=== PATIENT | male | born 1980 | race Caucasian/White ===

== ENCOUNTER 2020-09-10 15:01 | Outpatient (REF) | payer BC, SELFPAY ==
--- NOTE | 2020-09-10 15:06 | XR_ITS ---
EXAMINATION: XR LUMBOSACRAL SPINE WITH OBLIQUES CLINICAL INFORMATION: Pain COMPARISON: None TECHNIQUE: AP, both oblique, and lateral views of the lumbar spine. Lateral view of the lumbosacral junction. FINDINGS: The vertebral bodies and posterior elements are normal. The disc spaces are preserved and the vertebral alignment is normal. The paraspinal soft tissues are normal. XR/XR lumbar spine 4V min IMPRESSION: Unremarkable examination.
== END 2020-09-10 15:02 | disposition home or self-care (01) ==
LOC: HO.HMGCX 15:01
PROVIDERS: PCP Internal Medicine; Visit Provider Internal Medicine
DX: M54.5 Low back pain (principal)
CPT/HCPCS: 72110

== ENCOUNTER 2020-09-12 07:05 | Outpatient (REF) | payer BC, SELFPAY ==
[2020-09-12 11:53] LABS: Alanine Aminotransferase 52 U/L (0-40); Aspartate Amino Transferase 30 U/L (5-37); Cholesterol 191 mg/dL; HDL Cholesterol 50 mg/dL; LDL Cholesterol Calculated 126 mg/dl; Triglycerides 78 mg/dL
== END 2020-09-12 07:06 | disposition home or self-care (01) ==
LOC: HO.HMGCLDS 07:05
PROVIDERS: PCP Internal Medicine; Visit Provider Internal Medicine
DX: Z00.01 Encounter for general adult medical examination with abnormal findings (principal); E78.5 Hyperlipidemia, unspecified; I10 Essential (primary) hypertension
CPT/HCPCS: 80061; 84450; 84460

== ENCOUNTER 2021-08-06 06:36 | Outpatient (REF) | payer BC, SELFPAY ==
[2021-08-06 11:15] LABS: Appearance Urine CLEAR; Color Urine YELLOW; Glucose Urine UA NEG (NEG); Leukocyte Esterase Urine NEG (NEG); Nitrite Urine NEG (NEG); Urine Blood NEG (NEG); Urine Ketones NEG (NEG); Urine Protein NEG (NEG-TRACE)
[2021-08-06 11:24] LABS: Hematocrit 40.7 % (42.0-52.0); Hemoglobin 14.1 g/dl (14.0-18.0); Mean Corpuscular HGB Conc 34.6 g/dl (31.0-36.0); Mean Corpuscular Hemoglobin 31.1 pg (27.0-33.0); Mean Corpuscular Volume 89.8 fL (80.0-98.0); Mean Platelet Volume 11.2 fL (9.4-12.4); Platelet Count 183 X10*3/uL (160-400); Red Blood Count 4.53 X10*6/uL (4.60-5.80); Red Cell Distribution Width 10.9 % (11.0-16.0); White Blood Count 3.5 X10*3/uL (4.8-10.8)
[2021-08-06 11:44] LABS: Alanine Aminotransferase 37 U/L (0-40); Albumin Level 4.6 g/dL (3.5-5.0); Alkaline Phosphatase 66 U/L (39-117); Anion Gap 10 (12-20); Aspartate Amino Transferase 26 U/L (5-37); Bilirubin Direct 0.3 mg/dL (0.0-0.5); Blood Urea Nitrogen 17 mg/dL (9-16); Calcium 9.2 mg/dL (8.4-10.2); Carbon Dioxide 25 mmol/L (22-29); Chloride 108 mmol/L (96-108); Cholesterol 197 mg/dL; Estimated Glomerular Filt Rate > 60; Glucose Random 95 mg/dL (60-115); HDL Cholesterol 43 mg/dL; LDL Cholesterol Calculated 140 mg/dl; Potassium 4.3 mmol/L (3.3-5.1); Sodium 139 mmol/L (135-145); Total Protein 7.1 g/dL (6.5-8.0); Triglycerides 70 mg/dL
[2021-08-06 11:52] LABS: Thyroid Stimulating Hormone 1.26 uIU/mL (0.32-4.0)
[2021-08-07 07:47] LABS: SARS COV2 IgG Negative (Negative)
== END 2021-08-06 06:37 | disposition home or self-care (01) ==
LOC: HO.HMGCLDS 06:36
PROVIDERS: PCP Internal Medicine; Visit Provider Internal Medicine
DX: Z20.822 Contact with and (suspected) exposure to COVID-19 (principal); I10 Essential (primary) hypertension
CPT/HCPCS: 36415; 80048; 80061; 80076; 81003; 84443; 85027; 86769

== ENCOUNTER 2021-12-30 08:06 | Outpatient (REF) | payer BC, SELFPAY ==
[2021-12-30 11:23] LABS: MANUAL DIFF FLAG NO
[2021-12-30 11:46] LABS: Basophils Percent Auto 0.5 % (0-2); Eosinophils Absolute Auto 0.1 X10*3/uL (0.0-0.4); Eosinophils Percent Auto 3.4 % (0-4); Hematocrit 42.2 % (42.0-52.0); Hemoglobin 14.6 g/dl (14.0-18.0); Imm Gran Abs Auto 0.01 X10*3/uL (0.00-0.03); Imm Gran Pct Auto 0.3 % (0.0-0.4); Lymphocytes Absolute Auto 1.5 X10*3/uL (1.2-4.9); Lymphocytes Percent Auto 38.3 % (20-40); Mean Corpuscular HGB Conc 34.6 g/dl (31.0-36.0); Mean Corpuscular Hemoglobin 31.7 pg (27.0-33.0); Mean Corpuscular Volume 91.7 fL (80.0-98.0); Monocytes Absolute Auto 0.3 X10*3/uL (0.1-1.2); Monocytes Percent Auto 8.1 % (2-11); Neutrophils Absolute Auto 1.9 x10*3/uL (2.0-8.3); Neutrophils Percent Auto 49.4 % (45-73); Platelet Count 189 X10*3/uL (160-400); Red Cell Distribution Width 11.6 % (11.0-16.0); White Blood Count 3.8 X10*3/uL (4.8-10.8)
[2021-12-30 11:57] LABS: Alanine Aminotransferase 35 U/L (0-40); Aspartate Amino Transferase 23 U/L (5-37); Cholesterol 208 mg/dL; HDL Cholesterol 44 mg/dL; LDL Cholesterol Calculated 144 mg/dl; Triglycerides 104 mg/dL
== END 2021-12-30 08:07 | disposition home or self-care (01) ==
LOC: HO.HMGCLDS 08:06
PROVIDERS: Visit Provider Internal Medicine
DX: E78.5 Hyperlipidemia, unspecified (principal); R42 Dizziness and giddiness
CPT/HCPCS: 36415; 80061; 84450; 84460; 85025

== ENCOUNTER 2023-01-13 08:47 | Outpatient (REF) | payer BC, SELFPAY ==
[2023-01-13 11:53] LABS: Alanine Aminotransferase 61 U/L (0-40); Anion Gap 14 (12-20); Aspartate Amino Transferase 30 U/L (5-37); Blood Urea Nitrogen 13 mg/dL (9-16); Calcium 9.7 mg/dL (8.4-10.2); Carbon Dioxide 28 mmol/L (22-29); Chloride 104 mmol/L (96-108); Cholesterol 209 mg/dL; Estimated Glomerular Filt Rate > 60; Glucose Fasting 94 mg/dL (60-99); HDL Cholesterol 45 mg/dL; LDL Cholesterol Calculated 146 mg/dl; Potassium 4.3 mmol/L (3.3-5.1); Sodium 142 mmol/L (135-145); Triglycerides 93 mg/dL
== END 2023-01-13 08:48 | disposition home or self-care (01) ==
LOC: HO.HMGCLDS 08:47
PROVIDERS: PCP Internal Medicine; Visit Provider Internal Medicine
DX: Z00.01 Encounter for general adult medical examination with abnormal findings (principal); E78.5 Hyperlipidemia, unspecified; F41.9 Anxiety disorder, unspecified; I10 Essential (primary) hypertension
CPT/HCPCS: 36415; 80048; 80061; 84450; 84460

== ENCOUNTER 2023-04-25 12:50 | Outpatient (AMB) | payer BC, SELFPAY ==
--- NOTE | 2023-04-25 13:14 | A.OFFPC_ITS ---
Vital Signs 04/25/23 13:15 Height 5 ft 9 in Weight 212 lb BMI 31.3 BP 112/72 Blood Pressure Location Lt brachial Position Sitting Pulse 82 Pulse Source Pulse Oximeter Pulse Oximetry (%) 98 Oxygen Delivery Method Room Air Intake Visit Reasons: Cough follow-up Intake Note: Pt is here today to f/u on a lingering cough and wheezing Allergies lisinopril Adverse Reaction (Unknown, Verified 04/25/23 13:14) cough pollen/weather realated Allergy (Unknown, Uncoded 04/25/23 13:14) unknown Terbinafine Allergy (Unknown, Uncoded 04/25/23 13:14) rash Medication List - Last Reconciled 04/25/23 by Ghazala Florez MD albuterol sulfate 90 mcg/actuation (ProAir HFA) 1 inh inhalation Q4-6H PRN hydrochlorothiazide 12.5 mg PO QAM hydroxyzine HCl 25 mg PO BEDTIME PRN losartan 100 mg PO DAILY omeprazole 20 mg PO DAILY Tobacco use date assessed: 04/25/23 Dental Screening Dental Screen Date: 04/25/23 Did you have a dental visit in the last 12 months?: Yes Did you have a dental problem in the last 6 months where you did not have access to dental care?: No Was dental information given to patient?: Patient has dentist HPI Cough follow-up HPI Details 3-year-old male with mild intermittent asthma, here today complaining of recurrent nocturnal coughing accompanied by wheezing, present now for the last 5 days. Patient has been using his albuterol almost on a regular basis, which affords only temporary relief. He also has heartburn symptoms, takes omeprazole [id number], but takes it in the morning. \ he also has been complaining of intermittent episodes of pain at tips of both fingers, left more than the right, accompanied by wrist pain and knee pain, denies any accompanying joint swelling. States that he has positive family history of polyarteritis nodosa in his father and mother has both diagnosis of rheumatoid and osteoarthritis [facility] Medical History (Updated 04/25/23 @ 13:57 by Ghazala Florez MD) Anxiety Dyslipidemia Essential hypertension Family history of rheumatoid arthritis Heartburn symptom Low back pain radiating down leg Mild intermittent asthma Nocturnal cough with wheeze Polyarthralgia Surgical History Hx of tonsillectomy Family History Father High blood pressure High cholesterol Substance use disorder Mother High blood pressure High cholesterol Arthritis Sister High blood pressure High cholesterol Brother High blood pressure Social History Housing: House Alcohol intake: current Alcohol intake frequency: a few times a month Alcohol type: beer Patient Tobacco Use Status: Never used Tobacco e-Cigarette/Vaping Use: Never Used Current occupational status: employed Cognitive needs: No Hearing needs: No Vision needs: No Questionnaire PHQ-9 Over the last 2 weeks, how often have you been bothered by any of the following problems? Depression Screening Interpretation: Negative Source: Developed by Drs. Kg Greenwood, Anne Wolfe, Juan Latif and colleagues, with an educational irene from [employer]. Thrive Questionnaire Date Thrive assessed: 01/13/23 AUDIT C Alcohol Use Questionnaire (AUDIT-C) 1. How often do you have a drink containing alcohol?: Never Total Score: 0 KAREL-7 AMB Questionnaire KAREL-7 Date KAREL - 7 assessed: 01/13/23 Source: Developed by Drs. Kg Greenwood, Anne Wolfe, Juan Latif and colleagues, with an educational irene from [employer]. Review of Systems Const Denies headache(s) and Denies snoring ENT Denies halitosis, Denies change in voice, Denies dizziness, Denies ear discharge, Denies headache(s), Denies hoarseness, Denies nasal congestion, Denies nasal discharge, Denies post nasal drip, Denies sinus pain, Denies sinus pressure and Denies sore throat Card Denies chest pain, Denies rapid heart rate, Denies irregular heart rhythm, Denies lightheadedness and Denies dyspnea Resp Denies chest congestion, Denies dyspnea and Denies snoring GI Denies abdominal pain, Denies change in bowel habits, Denies nausea and Denies vomiting Musc Reports as per HPI Neuro Denies dizziness and Denies headache(s) Physical exam (Primary Care) Vital Signs: Last Vital Signs Pulse 82 04/25/23 13:15 BP 112/72 04/25/23 13:15 Pulse Ox 98 04/25/23 13:15 Oxygen Delivery Method Room Air 04/25/23 13:15 BMI result Body Mass Index 31.3 Tobacco/Smoking Status: Tobacco use Status Tobacco use date assessed 04/25/23 04/25/23 13:15 Patient Tobacco Use Status Never used Tobacco 04/25/23 13:15 e-Cigarette/Vaping Use Never Used 04/25/23 13:15 Depression Screening Interpretation: Negative Thrive Assessment: Date of Thrive Assessment Date Thrive assessed 01/13/23 04/25/23 13:15 Const Other: normocephalic ,. atraumatic, Nutritional Appearance: obese Limitations: no limitations HENMT Head: Yes atraumatic General nose exam: Normal external nose present and No nasal discharge present Face and sinus: Yes sinuses nontender and Yes face symmetric Mouth: Normal oral and palatal mucosa present and moist mucous membranes Neck Neck: Yes full ROM, Yes no lymphadenopathy and Yes supple Thyroid: Thyroid normal Resp Auscultation: clear to auscultation bilaterally Cardio Other: S1-S2 present regular rate and rhythm GI Palpation (GI): Soft to palpation, nontender, no guarding and no masses Auscultation: normal bowel sounds Male General Exam: Yes normal external exam Extrem General: Yes full ROM, Yes no joint enlargement, Yes no clubbing, cyanosis or edema, Yes no calf tenderness and Yes normal gait Assessment and Plan Assessment & Plan (1) Heartburn symptom: Code(s): R12 - Heartburn Plan: Currently taking [id number] omeprazole 20 mg daily advised to take it at night before bedtime, advised to avoid eating a full heavy meal at night (2) Polyarthralgia: Code(s): M25.50 - Pain in unspecified joint Plan: Additional labs ordered (3) Family history of rheumatoid arthritis: Code(s): Z82.61 - Family history of arthritis (4) Nocturnal cough with wheeze: Code(s): R05.8 - Other specified cough; R06.2 - Wheezing Plan: Continue with albuterol inhaler, will start Symbicort 160-4.5 mcg per inhalation, to initially start 1 inhalation at bedtime, may increase to 2 inhalations twice a day as needed for intermittent episodes of cough and wheezing. (5) Mild intermittent asthma: Code(s): J45.20 - Mild intermittent asthma, uncomplicated Orders: Orders CRP High Sensitivity 04/25/23 J45.20 - Mild intermittent asthma, uncomplicated, M25.50 - Pain in unspecified joint, R05.8 - Other specified cough, R06.2 - Wheezing, R12 - Heartburn, Z82.61 - Family history of arthritis Rheumatoid Factor 04/25/23 J45.20 - Mild intermittent asthma, uncomplicated, M25.50 - Pain in unspecified joint, R05.8 - Other specified cough, R06.2 - Wheezing, R12 - Heartburn, Z82.61 - Family history of arthritis Erythrocyte Sedimentation Rate 04/25/23 J45.20 - Mild intermittent asthma, uncomplicated, M25.50 - Pain in unspecified joint, R05.8 - Other specified co ugh, R06.2 - Wheezing, R12 - Heartburn, Z82.61 - Family history of arthritis ANCA Vasculitides 04/25/23 J45.20 - Mild intermittent asthma, uncomplicated, M25.50 - Pain in unspecified joint, R05.8 - Other specified cough, R06.2 - Wheezing, R12 - Heartburn, Z82.61 - Family history of arthritis Complement C3 04/25/23 J45.20 - Mild intermittent asthma, uncomplicated, M25.50 - Pain in unspecified joint, R05.8 - Other specified cough, R06.2 - Wheezing, R12 - Heartburn, Z82.61 - Family history of arthritis Complement C4 04/25/23 J45.20 - Mild intermittent asthma, uncomplicated, M25.50 - Pain in unspecified joint, R05.8 - Other specified cough, R06.2 - Wheezing, R12 - Heartburn, Z82.61 - Family history of arthritis Medications: New Symbicort 160-4.5 mcg/actuation (budesonide-formoterol) 2 puffs inhalation BID 10.2 grams 1RF NS Coding Level of Care Code Est Pt Level 4 (96439) Diagnoses Heartburn symptom R12 Polyarthralgia M25.50 Family history of rheumatoid arthritis Z82.61 Nocturnal cough with wheeze R05.8; R06.2 Mild intermittent asthma J45.20
[2023-04-25 13:15] VITALS: BP 112/72; PULSE 82; O2SAT 98; BMI 31.3
== END 2023-04-25 14:42 | disposition home or self-care (01) ==
PROVIDERS: PCP Internal Medicine; Visit Provider Internal Medicine
DX: R12 Heartburn (principal); M25.50 Pain in unspecified joint; Z82.61 Family history of arthritis; J45.20 Mild intermittent asthma, uncomplicated; R05.8 Other specified cough; R06.2 Wheezing
CPT/HCPCS: 99214

== ENCOUNTER 2023-04-27 15:43 | Outpatient (REF) | payer BC, SELFPAY ==
[2023-04-27 17:43] LABS: Erythrocyte Sedimentation Rate 2 MM/HR (0-15)
[2023-04-27 18:01] LABS: Rheumatoid Factor < 13.0 IU/mL (<15.0)
[2023-04-29 12:53] LABS: Complement C3 112 mg/dL (82-185)
[2023-04-29 19:18] LABS: Myeloperoxidase Antibody <1.0 AI; Proteinase 3 PR3 Antibodies <1.0 AI
[2023-04-29 19:58] LABS: CRP High Sensitivity 0.7 mg/L
== END 2023-04-27 15:44 | disposition home or self-care (01) ==
LOC: HO.LAB 15:43
PROVIDERS: PCP Internal Medicine; Visit Provider Internal Medicine
DX: M25.50 Pain in unspecified joint (principal); J45.20 Mild intermittent asthma, uncomplicated; R05.8 Other specified cough; R12 Heartburn; Z82.61 Family history of arthritis
CPT/HCPCS: 36415; 85652; 86021; 86141; 86160; 86431

== ENCOUNTER 2023-06-24 13:35 | Outpatient (AMB) | payer BC, SELFPAY ==
[2023-06-24 13:39] VITALS: BP 120/86; PULSE 77; O2SAT 99; BMI 31.2
--- NOTE | 2023-06-24 13:39 | A.OFFPC_ITS ---
Vital Signs 06/24/23 13:39 Height 5 ft 9 in Weight 211 lb BMI 31.2 BP 120/86 Blood Pressure Location Rt brachial Position Sitting Pulse 77 Pulse Source Pulse Oximeter Pulse Oximetry (%) 99 Oxygen Delivery Method Room Air Intake Visit Reasons: 2 month follow up Intake Note: patient is here today for his 2 month f/u Allergies lisinopril Adverse Reaction (Unknown, Verified 06/24/23 14:09) cough pollen/weather realated Allergy (Unknown, Uncoded 06/24/23 14:09) unknown Terbinafine Allergy (Unknown, Uncoded 06/24/23 14:09) rash Medication List - Last Reconciled 06/24/23 by Ghazala Florez MD albuterol sulfate 90 mcg/actuation (ProAir HFA) 1 inh inhalation Q4-6H PRN hydrochlorothiazide 12.5 mg PO QAM hydroxyzine HCl 25 mg PO BEDTIME PRN losartan 100 mg PO DAILY omeprazole 20 mg PO DAILY Symbicort 160-4.5 mcg/actuation (budesonide-formoterol) 2 puffs inhalation BID NS Tobacco use date assessed: 06/24/23 Dental Screening Dental Screen Date: 06/24/23 Did you have a dental visit in the last 12 months?: Yes Did you have a dental problem in the last 6 months where you did not have access to dental care?: No Was dental information given to patient?: Patient has dentist HPI 2 month follow up HPI Details 43-year-old male with mild intermittent asthma, here today for follow- up. He was started on Symbicort at last visit, but stopped taking the medication after riding of his prescription. Has not had any asthma attacks since last visit. Dated medication well. He is also here complaining of recurrence of toenail fungus on right big toenai; and 3rd and 4th toenail on the right foot [facility] Medical History (Updated 06/27/23 @ 01:08 by Ghazala Florez MD) Mild intermittent asthma Family history of rheumatoid arthritis Heartburn symptom Polyarthralgia Anxiety Low back pain radiating down leg Dyslipidemia Essential hypertension Surgical History Hx of tonsillectomy Family History Father High blood pressure High cholesterol Substance use disorder Mother High blood pressure High cholesterol Arthritis Sister High blood pressure High cholesterol Brother High blood pressure Social History Housing: House Alcohol intake: current Alcohol intake frequency: a few times a month Alcohol type: beer Patient Tobacco Use Status: Never used Tobacco e-Cigarette/Vaping Use: Never Used Current occupational status: employed Cognitive needs: No Hearing needs: No Vision needs: No Questionnaire PHQ-9 Over the last 2 weeks, how often have you been bothered by any of the following problems? Depression Screening Interpretation: Negative Source: Developed by Drs. Kg Greenwood, Anne Wolfe, Juan Latif and colleagues, with an educational irene from [employer]. Thrive Questionnaire Date Thrive assessed: 01/13/23 AUDIT C Alcohol Use Questionnaire (AUDIT-C) 1. How often do you have a drink containing alcohol?: Monthly or less 2. How many drinks containing alcohol do you have on a typical day when you are drinking?: 1 or 2 Total Score: 1 KAREL-7 AMB Questionnaire KAREL-7 Date KAREL - 7 assessed: 01/13/23 Source: Developed by Drs. Kg Greenwood, Anne Wolfe, Juan Latif and colleagues, with an educational irene from [employer]. Review of Systems Const Denies headache(s) ENT Denies dizziness, Denies ear discharge, Denies headache(s), Denies hoarseness, Denies nasal congestion and Denies post nasal drip Card Denies chest pain, Denies rapid heart rate, Denies irregular heart rhythm, Denies lightheadedness, Denies dyspnea and Denies dyspnea on exertion Resp Denies chest congestion, Denies dyspnea, Denies dyspnea on exertion and Denies wheezing GI Denies abdominal pain, Denies change in bowel habits and Denies nausea Skin/Breast Reports as per HPI Neuro Denies dizziness and Denies headache(s) Aller/Immun Denies wheezing Physical exam (Primary Care) Vital Signs: Last Vital Signs Pulse 77 06/24/23 13:39 BP 120/86 06/24/23 13:39 Pulse Ox 99 06/24/23 13:39 Oxygen Delivery Method Room Air 06/24/23 13:39 BMI result Body Mass Index 31.2 Tobacco/Smoking Status: Tobacco use Status Tobacco use date assessed 06/24/23 06/24/23 13:46 Patient Tobacco Use Status Never used Tobacco 06/24/23 13:46 e-Cigarette/Vaping Use Never Used 06/24/23 13:46 Depression Screening Interpretation: Negative Thrive Assessment: Date of Thrive Assessment Date Thrive assessed 01/13/23 06/24/23 13:46 Const Other: normocephalic ,. atraumatic, Nutritional Appearance: obese Limitations: no limitations HENMT Head: Yes atraumatic General nose exam: Normal external nose present and No nasal discharge present Face and sinus: Yes face symmetric Mouth: Normal oral and palatal mucosa present and moist mucous membranes Neck Neck: Yes full ROM, Yes no lymphadenopathy and Yes supple Thyroid: Thyroid normal Resp Auscultation: clear to auscultation bilaterally Cardio Other: S1-S2 present regular rate and rhythm Skin Other: Thick discolored toenail on right big toe and on right 3rd and 4th toes as well Extrem General: Yes full ROM, Yes no joint enlargement, Yes no clubbing, cyanosis or edema, Yes no calf tenderness and Yes normal gait Assessment and Plan Assessment & Plan (1) Toenail fungus: Code(s): B35.1 - Tinea unguium Plan: Podiatry consult ordered (2) Mild intermittent asthma: Code(s): J45.20 - Mild intermittent asthma, uncomplicated Qualifiers: Asthma complication type: uncomplicated Qualified Code(s): J45.20 - Mild intermittent asthma, uncomplicated Plan: Refilled his Symbicort inhaler, advised to just start using it at bedtime 1 inhalation, reminded again to gargle mouth after use. Orders: Referrals Podiatry Referral B35.1 - Tinea unguium Medications: Changed From Symbicort 160-4.5 mcg/actuation (budesonide-formoterol) 2 puffs inhalation BID 10.2 grams 1RF NS J45.20 - Mild intermittent asthma, uncomplicated To Symbicort 160-4.5 mcg/actuation (budesonide-formoterol) 1 puff inhalation BID 10.2 grams 5RF NS J45.20 - Mild intermittent asthma, uncomplicated Coding Level of Care Code Est Pt Level 3 (16129) Diagnoses Toenail fungus B35.1 Mild intermittent asthma without complication J45.20 Asthma complication type: uncomplicated
== END 2023-06-24 16:00 | disposition home or self-care (01) ==
PROVIDERS: PCP Internal Medicine; Visit Provider Internal Medicine
DX: B35.1 Tinea unguium (principal); J45.20 Mild intermittent asthma, uncomplicated
CPT/HCPCS: 99213

== ENCOUNTER 2024-01-19 07:57 | Outpatient (AMB) | payer BC, SELFPAY ==
[2024-01-19 07:59] VITALS: BP 124/84; PULSE 72; O2SAT 98; BMI 30.9
--- NOTE | 2024-01-19 07:59 | MHC.PC.OV ---
Vital Signs 01/19/24 07:59 Height 5 ft 9 in Weight 209 lb BMI 30.9 BP 124/84 Blood Pressure Location Rt brachial Position Sitting Pulse 72 Pulse Source Pulse Oximeter Pulse Oximetry (%) 98 Oxygen Delivery Method Room Air Intake Visit Reasons: Annual PE Intake Note: Pt is here today for his PE Allergies lisinopril Adverse Reaction (Unknown, Verified 01/19/24 08:16) cough pollen/weather realated Allergy (Unknown, Uncoded 01/19/24 08:16) unknown Terbinafine Allergy (Unknown, Uncoded 01/19/24 08:16) rash Medication List - Last Reconciled 01/19/24 by Ghazala Florez MD albuterol sulfate 90 mcg/actuation (ProAir HFA) 1 inh inhalation Q4-6H PRN hydrochlorothiazide 12.5 mg PO QAM losartan 100 mg PO DAILY omeprazole 20 mg PO DAILY Tobacco use date assessed: 01/19/24 Dental Screening Dental Screen Date: 01/19/24 Did you have a dental visit in the last 12 months?: Yes Did you have a dental problem in the last 6 months where you did not have access to dental care?: No Was dental information given to patient?: Patient has dentist HPI Annual PE HPI Details 43-year-old male here today for physical exam he has hypertension currently stable controlled on losartan HCTZ, has mild intermittent asthma stable controlled not on Symbicort anymore and rarely needs to use his albuterol inhaler . Has not had any anxiety attacks, not taking any medications at present time. [facility] Medical History Mild intermittent asthma Family history of rheumatoid arthritis Heartburn symptom Polyarthralgia Anxiety Low back pain radiating down leg Dyslipidemia Essential hypertension Surgical History Hx of tonsillectomy Family History Father High blood pressure High cholesterol Substance use disorder Mother High blood pressure High cholesterol Arthritis Sister High blood pressure High cholesterol Brother High blood pressure Social History Housing: House Alcohol intake: current Alcohol intake frequency: a few times a month Alcohol type: beer Patient Tobacco Use Status: Never used Tobacco e-Cigarette/Vaping Use: Never Used Current occupational status: employed Cognitive needs: No Hearing needs: No Vision needs: No Questionnaire PHQ-9 Over the last 2 weeks, how often have you been bothered by any of the following problems? 1. Little interest or pleasure in doing things: not at all 2. Feeling down, depressed, or hopeless: not at all 3. Trouble falling or staying asleep, or sleeping too much: not at all 4. Feeling tired or having little energy: not at all 5. Poor appetite or overeating: not at all 7. Trouble concentrating on things, such as reading the newspaper or watching television: not at all 8. Moving or speaking so slowly that other people could have noticed. Or the opposite - being so fidgety or restless that you have been moving around a lot more than usual: not at all 9. Thoughts that you would be better off or of hurting yourself in some way: not at all Depression Screening Interpretation: Negative Depression Screening Done: Yes 01882 - PHQ-9 Billing: Yes Source: Developed by Drs. Kg Greenwood, Anne Wolfe, Juan Latif and colleagues, with an educational irene from [employer]. Thrive Questionnaire Date Thrive assessed: 01/19/24 I am a: Patient What is your living situation today?: I have a steady place to live Within the past 12 months, did the food you bought not last and you didn't have the money to get more?: Never true Within the past 12 months, did you worry whether your food would run out before you got money to buy more?: Never true Do you have trouble paying for medicines?: No Do you have trouble getting transportation to medical appointments?: No Do you have trouble paying your heating and electricity bill?: No Do you have trouble taking care of your child, family member or friend?: No Do you have trouble with day-to-day activities such as bathing, preparing meals, shopping, managing finances, etc.?: No Are you currently unemployed and looking for a job?: No Are you interested in more education?: No THRIVE Score: 0 AUDIT C Alcohol Use Questionnaire (AUDIT-C) 1. How often do you have a drink containing alcohol?: Monthly or less 2. How many drinks containing alcohol do you have on a typical day when you are drinking?: 1 or 2 3. How often do you have six or more drinks on one occasion?: Never Total Score: 1 KAREL-7 AMB Questionnaire KAREL-7 Date KAREL - 7 assessed: 01/19/24 Feeling nervous, anxious, or on edge: 0 = Not at all Not being able to stop or control worryin = Not at all Worrying too much about different things: 0 = Not at all Trouble relaxin = Not at all Being so restless that it is hard to sit still: 0 = Not at all Becoming easily annoyed or irritable: 0 = Not at all Feeling afraid as if something awful might happen: 0 = Not at all Total KAREL-7 score (0-4 normal; 5-9 mild; 10-14 moderate; 15-21 severe): 0 Source: Developed by Drs. Kg Greenwood, Anne Wolfe, Juan Latif and colleagues, with an educational irene from [employer]. KAREL-7 Assessment Billing KAREL-7 Assessment Tool: KAREL-7 Assessment 41673 ACT Questionnaire In the past 4 weeks, how much of the time did your asthma keep you from getting as much done at work, school or at home?: None of the time During the past 4 weeks, how often have you had shortness of breath?: Not at all During the past 4 weeks, how often did your asthma symptoms wake you up at night or earlier than usual in the morning?: Not at all During the past 4 weeks, how often have you had to use your rescue inhaler or nebulizer medication?: Not at all How would you rate your asthma control during the past 4 weeks?: Completely controlled ACT Interpretation: Negative Score: 25 Review of Systems Const Reports no additional complaints Eyes Details: Sees [facility], wears reading glasses ENT Details: Gets dental cleaning every 6 month Denies ear discharge, Denies hoarseness, Denies nasal congestion and Denies post nasal drip Card Denies chest pain, Denies rapid heart rate, Denies irregular heart rhythm, Denies lightheadedness, Denies dyspnea and Denies dyspnea on exertion Resp Denies chest congestion, Denies dyspnea and Denies dyspnea on exertion GI Denies abdominal pain, Denies change in bowel habits and Denies nausea Reports no additional complaints Musc Details: Occasional low back pain Skin/Breast Reports as per HPI Neuro Reports no additional complaints Psych Reports no additional complaints Endo Reports no additional complaints Franco/Lymph Reports no additional complaints Aller/Immun Reports no additional complaints Physical exam (Primary Care) Vital Signs: Last Vital Signs Pulse 72 01/19/24 07:59 BP 124/84 01/19/24 07:59 Pulse Ox 98 01/19/24 07:59 Oxygen Delivery Method Room Air 01/19/24 07:59 BMI result Body Mass Index 30.9 Tobacco/Smoking Status: Tobacco use Status Tobacco use date assessed 01/19/24 01/19/24 08:04 Patient Tobacco Use Status Never used Tobacco 01/19/24 08:04 e-Cigarette/Vaping Use Never Used 01/19/24 08:04 Depression Screening Interpretation: Negative Thrive Assessment: Date of Thrive Assessment Date Thrive assessed 01/13/23 01/19/24 08:04 Const Other: normocephalic ,. atraumatic, Nutritional Appearance: obese Orientation/consciousness: patient oriented x3 Limitations: no limitations HENMT Head: Yes atraumatic Ears: hearing grossly normal bilaterally, external ears normal and Abnormal EAC present excessive cerumen bilateral General nose exam: Normal external nose present and No nasal discharge present Face and sinus: Yes face symmetric Mouth: Normal oral and palatal mucosa present and moist mucous membranes Eyes General: appearance normal, both eyes and all related structures Neck Neck: Yes full ROM, Yes no lymphadenopathy and Yes supple Chest Chest palpation & inspection: normal inspection of the chest Resp Auscultation: clear to auscultation bilaterally Cardio Other: S1-S2 present regular rate and rhythm GI Palpation (GI): Soft to palpation, nontender, no guarding and no masses Auscultation: normal bowel sounds General: Yes no CVA tenderness Male General Exam: Yes normal external exam Back/Spine/Pelvis Back: no CVA tenderness and No back tenderness Skin Other: Thick discolored toenail on right big toe and on right 3rd and 4th toes as well General skin exam: no rashes or lesions noted Neuro General: patient oriented x3, gait normal, moves all extremities, Normal light touch and pain sensation, no focal motor deficits and CN's II-XI intact bilaterally Extrem General: Yes full ROM, Yes no joint enlargement, Yes no clubbing, cyanosis or edema, Yes no calf tenderness and Yes normal gait Psych Appearance: grossly normal and well kempt Mental Status: mental status grossly normal Affect: normal affect Assessment and Plan Assessment & Plan (1) Annual visit for general adult medical examination with abnormal findings: Code(s): Z00.01 - Encounter for general adult medical examination with abnormal findings Plan: Will check appropriate labs. Up-to-date with his regular dental visit every 6 months and regular eye exams, at least every 2 years, goes to [facility]. Take adequate calcium in diet and vitamin-D 3 at 2000 IU per cap once a day, in addition to weight-bearing exercises to help maintain good muscle tone and weight control. Instructed to do self-testicular exam check for any mass. He gets yearly flu shots, has had COVID vaccines but does not want to get the booster, up-to-date Tdap. (2) Essential hypertension: Code(s): I10 - Essential (primary) hypertension Plan: Blood pressure at goal of less than 130/80. Continue losartan and HCTZ at the same dose. Reinforced importance of following a low sodium diet, getting regular exercise, and lowering stress levels. (3) Dyslipidemia: Code(s): E78.5 - Hyperlipidemia, unspecified Plan: fasting lipid profile ordered . Continue with adherence to low-cholesterol diet and regular exercise, at least 30 minutes 3 to 4 times a week. Advised patient to make healthy food choices, eat more fruits, vegetables, whole grains, wild caught fish and low-fat dairy. Limit amount of meat and fried or fatty food products, as well as processed foods and fast foods. (4) Anxiety: Code(s): F41.9 - Anxiety disorder, unspecified Plan: Controlled, Not taking any medications at present time (5) Mild intermittent asthma: Code(s): J45.20 - Mild intermittent asthma, uncomplicated Qualifiers: Asthma complication type: uncomplicated Qualified Code(s): J45.20 - Mild intermittent asthma, uncomplicated Plan: Well controlled, rarely needs to use his albuterol inhaler Orders: Orders Aspartate Amino Transferase Today E78.5 - Hyperlipidemia, unspecified, F41.9 - Anxiety disorder, unspecified, I10 - Essential (primary) hypertension, J45.20 - Mild intermittent asthma, uncomplicated, Z00.01 - Encounter for general adult medical examination with abnormal findings Alanine Aminotransferase Today E78.5 - Hyperlipidemia, unspecified, F41.9 - Anxiety disorder, unspecified, I10 - Essential (primary) hypertension, J45.20 - Mild intermittent asthma, uncomplicated, Z00.01 - Encounter for general adult medical examination with abnormal findings Basic Metabolic Panel Fasting Today E78.5 - Hyperlipidemia, unspecified, F41.9 - Anxiety disorder, unspecified, I10 - Essential (primary) hypertension, J45.20 - Mild intermittent asthma, uncomplicated, Z00.01 - Encounter for general adult medical examination with abnormal findings Lipid Panel Today E78.5 - Hyperlipidemia, unspecified, F41.9 - Anxiety disorder, unspecified, I10 - Essential (primary) hypertension, J45.20 - Mild intermittent asthma, uncomplicated, Z00.01 - Encounter for general adult medical examination with abnormal findings Coding Level of Care Code Est Pt Prev Care 40-64y(54858) Diagnoses Annual visit for general adult medical examination with abnormal findings Z00.01 Essential hypertension I10 Dyslipidemia E78.5 Anxiety F41.9 Mild intermittent asthma without complication J45.20 Asthma complication type: uncomplicated Additional Codes KAREL-7 Assessment Billing - KAREL-7 Assessment Tool: KAREL-7 Assessment 84191 ([id number])
== END 2024-01-19 08:40 | disposition home or self-care (01) ==
PROVIDERS: Visit Provider Internal Medicine
DX: Z00.00 Encounter for general adult medical examination without abnormal findings (principal); I10 Essential (primary) hypertension; E78.5 Hyperlipidemia, unspecified; F41.9 Anxiety disorder, unspecified; J45.20 Mild intermittent asthma, uncomplicated
CPT/HCPCS: 99396

== ENCOUNTER 2024-01-19 08:40 | Outpatient (REF) | payer BC, SELFPAY ==
[2024-01-19 10:45] LABS: Alanine Aminotransferase 36 U/L (0-40); Anion Gap 9 (12-20); Aspartate Amino Transferase 24 U/L (5-37); Blood Urea Nitrogen 18 mg/dL (9-16); Calcium 9.8 mg/dL (8.4-10.2); Carbon Dioxide 30 mmol/L (22-29); Chloride 107 mmol/L (96-108); Cholesterol 193 mg/dL (<200); Estimated Glomerular Filt Rate > 60; Glucose Fasting 98 mg/dL (60-99); HDL Cholesterol 45 mg/dL (>40); LDL Cholesterol Calculated 137 mg/dL (<100); Potassium 4.1 mmol/L (3.3-5.1); Sodium 142 mmol/L (135-145); Triglycerides 59 mg/dL (<150)
== END 2024-01-19 08:41 | disposition home or self-care (01) ==
LOC: HO.HMGCLDS 08:40
PROVIDERS: PCP Internal Medicine; Visit Provider Internal Medicine
DX: Z00.01 Encounter for general adult medical examination with abnormal findings (principal); I10 Essential (primary) hypertension; J45.20 Mild intermittent asthma, uncomplicated; F41.9 Anxiety disorder, unspecified; E78.5 Hyperlipidemia, unspecified
CPT/HCPCS: 36415; 80048; 80061; 84450; 84460

== ENCOUNTER 2025-01-26 08:05 | Outpatient (REF) | payer OTHER, SELFPAY ==
--- OUTSIDE RECORDS SUMMARY | 2025-01-26 08:08 | XMS_ITS ---
Author Organization [facility] Address [address] [place] [address] Care Team Providers Care Talent Scout Name Role Phone Gautam APARICIO, Ghazala Johnson Primary Care Provider Un available Black, Yaa Unavailable [phone] REASON FOR VISIT same day cx Problems No Known Problems Encounters Encounter Location Date Provider Diagnosis [facility] [address] [place] [address] 04/16/2024 Yaa Black Plan Of Treatment No Information Progress Notes * Vincenzo ALLENoDOB:1980 (44 yo M)Acc No.[id number]:04/16/2024 Patient:?Vincenzo Alleno :1980???Age:44 Y???Sex:Male Address:[address] [place] [address], [address] * true * Date:? Generated for Goyo humphreys/Seema/eTransmitting on:?01/26/2025 08:08 AM EDT
--- OUTSIDE RECORDS SUMMARY | 2025-01-26 08:08 | XMS_ITS ---
Author Organization [facility] Address [address] [place] [address] Care Team Providers Care Silk Screen Printer Machine Name Role Phone Gautam APARICIO, Ghazala Johnson Primary Care Provider Un available Yaa Manley [phone] Problems No Known Problems Encounters Encounter Location Date Provider Diagnosis [facility] [address] [place] [address] 04/16/2024 Yaa Manley Plan Of Treatment No Information Progress Notes * Vincenzo ALLENoDOB:1980 (44 yo M)Acc No.[id number]:04/16/2024 Progress Note Patient:Trenton VALLADARES Provider:?Yaa Manley DPM :1980???Age:44 Y???Sex:Male Sean e:04/16/2024 Address:[address] [place], [place] [id number] Pcp:Jayme Snell Subjective: * Chief Complaints: * ??? * Medical History:? Objective: * Vitals:? Assessment: Plan: * Treatment: * Images: * The named appointment provid er may or may not be the originator of this progress note, and it is not deemed complete until electronically signed by the appointment provider. Sign off status: Pending * Provider:?Yaa Manley DPM Date:?2023 Generated for Goyo humphreys/Seema/eTransmitting on:?01/26/2025 08:08 AM EDT
--- OUTSIDE RECORDS SUMMARY | 2025-01-26 08:09 | XMS_ITS | Patient Health Record ---
[facility] Address [address] [place] [address] Care Team Providers Care Recording Studio Intern Name Role Phone Gautam APARICIO, Ghazala Johnson Primary Care Provider Un available Black, Yaa Unavailable [phone] Allergies Allergen (clinical drug ingredient) Drug/Non Drug Allergy documented on EMR Reaction Allergy Type Onset Date Status Lamisil rash Drug Allergy Active Reason For Referral No Information Medications Medication SIG (Take, Route, Frequency, Duration) Notes Start Date End Date Status hydroCHLOROthiazide 12.5 MG 1 tablet in the morning Orally Once a day Active Ciclopirox Olamine 0.77 % 1 application Externally Twice a day for 30 days Active Losartan Potassium 100 MG 1 tablet Orall y Once a day Active Clobetasol Propionate 0.05 % 1 applicati on Externally Twice a day for 14 days 12/27/2023 Active Lamisil 250 250 MG 1 Tab Oral Daily for 90 07/18/2013 Not-Taking Jublia 10 % as directed Externally Daily for 30 days 01/29/2016 Not-Taking Ciclopirox 8 % 1 application Externally Once a day for 30 days 09/15/2023 Active Social History Tobacco Use: Social History Observation Description Date Details (start date - stop date) Never Smoker NA - NA Tobacco Use/Smoking Question Answer Notes Are you a: nonsmoker Additional Findings: Tobacco Non-User Current no n-smoker Alcohol Screen Question Answer Notes Did you have a drink contain ing alcohol in the past year? Yes How often did you have a dri nk containing alcohol in the past year? 2 to 3 times a week (3 points) Points 3 Interpretation Negative Tobacco use other than smoking: Question Answer Notes Are you an other tobacco user? No Problems No Known Problems Encounters Encounter Location Date Provider Diagnosis [facility] [address] [place] [address] 04/16/2024 Yaa Vineet Plan Of Treatment Pending Test Test Name Order Date *Liver Function Test (LFT) 06/13/2013 [id number] NAIL, 1-5 09/15/2023 [id number] NAIL, 1-5 12/22/2023 Nail Panel 09/15/2023 93609 - Shave Biopsy of Skin Lesion 11/25 Insurance Providers Payer Name Payer Address Payer Phone Subscriber Number Group Number Insured Name Patient Relationship to Insured Coverage Start Date Coverage End Date [facility] [address] [place] [address] [id number] Trenton Edwards Self - patient is the insured Medical (General) History Medical History History ICD Code seasonal allergies Anxiety covid-19 High blood pressure Surgical History Surgery Date(Month/Year) tonsillectomy
[2025-01-26 11:43] LABS: MANUAL DIFF FLAG NO
[2025-01-26 12:08] LABS: Basophils Percent Auto 0.6 % (0-2); Eosinophils Absolute Auto 0.2 X10*3/uL (0.0-0.4); Eosinophils Percent Auto 4.3 % (0-4); Hematocrit 40.6 % (42.0-52.0); Hemoglobin 13.9 g/dl (14.0-18.0); Imm Gran Abs Auto 0.01 X10*3/uL (0.00-0.03); Imm Gran Pct Auto 0.3 % (0.0-0.4); Lymphocytes Absolute Auto 1.4 X10*3/uL (1.2-4.9); Lymphocytes Percent Auto 38.9 % (20-40); Mean Corpuscular HGB Conc 34.2 g/dl (31.0-36.0); Mean Corpuscular Hemoglobin 31.2 pg (27.0-33.0); Mean Platelet Volume 11.2 fL (9.4-12.4); Monocytes Absolute Auto 0.3 X10*3/uL (0.1-1.2); Monocytes Percent Auto 9.1 % (2-11); Neutrophils Absolute Auto 1.7 x10*3/uL (2.0-8.3); Neutrophils Percent Auto 46.8 % (45-73); Platelet Count 184 X10*3/uL (160-400); Red Blood Count 4.46 X10*6/uL (4.60-5.80); Red Cell Distribution Width 11.3 % (11.0-16.0); White Blood Count 3.5 X10*3/uL (4.8-10.8)
[2025-01-26 12:25] LABS: Alanine Aminotransferase 47 U/L (0-40); Anion Gap 11 (12-20); Aspartate Amino Transferase 31 U/L (5-37); Blood Urea Nitrogen 17 mg/dL (9-16); Calcium 9.1 mg/dL (8.4-10.2); Carbon Dioxide 26 mmol/L (22-29); Chloride 112 mmol/L (96-108); Cholesterol 189 mg/dL (<200); Estimated Glomerular Filt Rate > 60; Glucose Fasting 99 mg/dL (60-99); HDL Cholesterol 46 mg/dL (>40); LDL Cholesterol Calculated 125 mg/dL (<100); Potassium 4.2 mmol/L (3.3-5.1); Sodium 145 mmol/L (135-145); Triglycerides 93 mg/dL (<150)
== END 2025-01-26 08:06 | disposition home or self-care (01) ==
LOC: HO.HMGCLDS 08:05
PROVIDERS: Internal Medicine; PCP Internal Medicine; Visit Provider Internal Medicine
DX: J45.20 Mild intermittent asthma, uncomplicated (principal); F41.9 Anxiety disorder, unspecified; E78.5 Hyperlipidemia, unspecified; I10 Essential (primary) hypertension
CPT/HCPCS: 36415; 80048; 80061; 84450; 84460; 85025

== ENCOUNTER 2025-01-31 13:47 | Outpatient (AMB) | payer BC, SELFPAY ==
--- NOTE | 2025-01-31 14:09 | MHC.PC.OV ---
Vital Signs 01/31/25 14:12 Height 5 ft 9 in Weight 210 lb BMI 31.0 BP 122/70 Blood Pressure Location Lt brachial Position Sitting Respiration 16 Pulse 73 Pulse Source Pulse Oximeter Temp 98.0 F Temp Source Oral Pulse Oximetry (%) 97 Oxygen Delivery Method Room Air Intake Visit Reasons: Annual PE Intake Note: Pt is here today for his PE Allergies lisinopril Adverse Reaction (Unknown, Verified 01/31/25 14:48) cough pollen/weather realated Allergy (Unknown, Uncoded 01/31/25 14:48) unknown Terbinafine Allergy (Unknown, Uncoded 01/31/25 14:48) rash Medication List - Last Reconciled 01/31/25 by Ghazala Florez MD albuterol sulfate 90 mcg/actuation (ProAir HFA) 1 inh inhalation Q4-6H PRN hydrochlorothiazide 12.5 mg PO QAM losartan 100 mg PO DAILY losartan-hydrochlorothiazide 100-12.5 mg 1 tab PO DAILY omeprazole 20 mg PO DAILY tizanidine 4 mg PO BEDTIME PRN Tobacco use date assessed: 01/31/25 Dental Screening Dental Screen Date: 01/31/25 Did you have a dental visit in the last 12 months?: Yes Did you have a dental problem in the last 6 months where you did not have access to dental care?: Yes Was dental information given to patient?: Patient has dentist HPI Annual PE HPI Details 44-year-old male with hypertension, history of anxiety disorder, dyslipidemia, and mild intermittent asthma, here today for his physical exam. Recent fasting labs showed improvement in his lipids, but noted to be mildly anemic. He has been taking a lot of Motrin over the last several weeks due to current low back pain accompanied by painful muscle spasm. Pain is nonradiating just mainly stay in his lower back. Not accompanied by any urinary or stool incontinence, no numbness or weakness in lower extremities reported.. 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 Has been in his job now for the last 20 years Rarely needing to use his inhaler, and has not been needing to take any anxiety medicines now [facility] Medical History Lumbago Anemia Mild intermittent asthma Family history of rheumatoid arthritis Heartburn symptom Polyarthralgia Anxiety Low back pain radiating down leg Dyslipidemia Essential hypertension Surgical History Hx of tonsillectomy Family History Father High blood pressure High cholesterol Substance use disorder Mother High blood pressure High cholesterol Arthritis Sister High blood pressure High cholesterol Brother High blood pressure Social History Housing: House Alcohol intake: current Alcohol intake frequency: a few times a month Alcohol type: beer Patient Tobacco Use Status: Never used Tobacco e-Cigarette/Vaping Use: Never Used Current occupational status: employed Cognitive needs: No Hearing needs: No Vision needs: No Questionnaire PHQ-9 Over the last 2 weeks, how often have you been bothered by any of the following problems? 1. Little interest or pleasure in doing things: not at all 2. Feeling down, depressed, or hopeless: not at all 3. Trouble falling or staying asleep, or sleeping too much: not at all 4. Feeling tired or having little energy: not at all 5. Poor appetite or overeating: not at all 6. Feeling bad about yourself - or that you are a failure or have let yourself or your family down: not at all 7. Trouble concentrating on things, such as reading the newspaper or watching television: not at all 8. Moving or speaking so slowly that other people could have noticed. Or the opposite - being so fidgety or restless that you have been moving around a lot more than usual: not at all 9. Thoughts that you would be better off or of hurting yourself in some way: not at all Total score: 0 Depression Screening Interpretation: Negative Depression Screening Done: Yes 79531 - PHQ-9 Billing: Yes Source: Developed by Drs. Kg Greenwood, Anne Wolfe, Juan Latif and colleagues, with an educational irene from [employer]. Thrive Questionnaire Date Thrive assessed: 01/31/25 I am a: Patient What is your living situation today?: I have a steady place to live Within the past 12 months, did the food you bought not last and you didn't have the money to get more?: Never true Within the past 12 months, did you worry whether your food would run out before you got money to buy more?: Never true Do you have trouble paying for medicines?: No Do you have trouble getting transportation to medical appointments?: No Do you have trouble paying your heating and electricity bill?: No Do you have trouble taking care of your child, family member or friend?: No Do you have trouble with day-to-day activities such as bathing, preparing meals, shopping, managing finances, etc.?: No Are you currently unemployed and looking for a job?: No Are you interested in more education?: No THRIVE Score: 0 AUDIT C Alcohol Use Questionnaire (AUDIT-C) 1. How often do you have a drink containing alcohol?: Never Total Score: 0 KAREL-7 AMB Questionnaire KAREL-7 Date KAREL - 7 assessed: 01/31/25 Feeling nervous, anxious, or on edge: 0 = Not at all Not being able to stop or control worryin = Not at all Worrying too much about different things: 0 = Not at all Trouble relaxin = Not at all Being so restless that it is hard to sit still: 0 = Not at all Becoming easily annoyed or irritable: 0 = Not at all Feeling afraid as if something awful might happen: 0 = Not at all Total KAREL-7 score (0-4 normal; 5-9 mild; 10-14 moderate; 15-21 severe): 0 Source: Developed by Drs. Kg Greenwood, Anne Wolfe, Juan Latif and colleagues, with an educational irene from [employer]. Review of Systems Const Reports no additional complaints Eyes Details: Sees [facility], wears reading glasses ENT Details: Gets dental cleaning every 6 month Denies ear discharge, Denies hoarseness, Denies nasal congestion and Denies post nasal drip Card Denies chest pain, Denies rapid heart rate, Denies irregular heart rhythm, Denies lightheadedness, Denies dyspnea and Denies dyspnea on exertion Resp Denies chest congestion, Denies dyspnea and Denies dyspnea on exertion GI Denies abdominal pain, Denies change in bowel habits and Denies nausea Reports no additional complaints Musc Reports as per HPI Skin/Breast Reports as per HPI Neuro Reports no additional complaints Psych Reports no additional complaints Endo Reports no additional complaints Franco/Lymph Reports no additional complaints Aller/Immun Reports no additional complaints Physical exam (Primary Care) Vital Signs: Last Vital Signs Temp 98.0 F 01/31/25 14:12 Pulse 73 01/31/25 14:12 Resp 16 01/31/25 14:12 BP 122/70 01/31/25 14:12 Pulse Ox 97 01/31/25 14:12 Oxygen Delivery Method Room Air 01/31/25 14:12 BMI result Body Mass Index 31.0 Tobacco/Smoking Status: Tobacco use Status Tobacco use date assessed 01/31/25 01/31/25 14:10 Patient Tobacco Use Status Never used Tobacco 01/31/25 14:10 e-Cigarette/Vaping Use Never Used 01/31/25 14:10 PHQ-9: PHQ-9 Score PHQ-9: Total score 0 01/31/25 14:14 Depression Screening Interpretation: Negative Thrive Assessment: Date of Thrive Assessment Date Thrive assessed 01/31/25 01/31/25 14:14 Const Other: normocephalic ,. atraumatic, Nutritional Appearance: obese Orientation/consciousness: patient oriented x3 HENMT Ears: hearing grossly normal bilaterally and external ears normal General nose exam: Normal external nose present Face and sinus: Yes face symmetric Mouth: Normal oral and palatal mucosa present and moist mucous membranes Eyes General: appearance normal, both eyes and all related structures Neck Neck: Yes full ROM, Yes no lymphadenopathy and Yes supple Chest Chest palpation & inspection: normal inspection of the chest Resp Auscultation: clear to auscultation bilaterally Cardio Other: S1-S2 present regular rate and rhythm GI Palpation (GI): Soft to palpation, nontender, no guarding and no masses Auscultation: normal bowel sounds General: Yes no CVA tenderness Male General Exam: Yes normal external exam Back/Spine/Pelvis Back: no CVA tenderness and No back tenderness Skin Other: Thick discolored toenail on right big toe and on right 3rd and 4th toes as well General skin exam: no rashes or lesions noted Neuro General: patient oriented x3, gait normal, moves all extremities, Normal light touch and pain sensation, no focal motor deficits and CN's II-XI intact bilaterally Extrem General: Yes full ROM, Yes no joint enlargement, Yes no clubbing, cyanosis or edema, Yes no calf tenderness and Yes normal gait Psych Appearance: grossly normal and well kempt Mental Status: mental status grossly normal Affect: normal affect Results Reviewed Results Reviewed: Name: Trenton Edwards Age/Sex: 44/M : 1980 Unit#: [id number] Attend Dr: Julianne Hunt MD Re01/26/25 Status: DEP REF Location: [facility] Disch: SPEC : [id number] JONATAN: 01/26/25 STATUS: COMP REQ : [id number] RECD: 01/26/[address]: Ghazala Florez MD COMP: 01/26/25 ENTERED: 01/26/[address]: Julianne Hunt MD ORDERED: Met Prof Fast, AST, ALT, Lipid Panel Test Result Flag Reference Sodium 145 135-145 mmol/L Potassium 4.2 3.3-5.1 mmol/L CL 112 H 96-108 mmol/L CO2 26 22-29 mmol/L Gap 11 L 12-20 BUN 17 H 9-16 mg/dL Creat 0.99 0.5-1.4 mg/dL eGFR > 60 Chronic Kidney Disease: Estimated GFR < 60 mL/min/1.73m2 Severe Kidney Disease: Estimated GFR < 15 mL/min/1.73m2 FBS 99 60-99 mg/dL CA 9.1 # 8.4-10.2 mg/dL AST (GOT) 31 5-37 U/L ALT (GPT) 47 H 0-40 U/L Triglyceride 93 <150 mg/dL Desirable Triglyceride: less than 150 mg/dL Borderline High Triglyceride 150-199 mg/dL High Triglyceride: 200-499 mg/dL Very High Triglyceride: greater than or equal to 5OO mg/dL Cholesterol 189 <200 mg/dL Desirable Cholesterol: less than 200 mg/dL Borderline High Cholesterol: 200-239 mg/dL High Cholesterol: greater than 239 mg/dL LDL Calculated 125 H <100 mg/dL Desirable LDL: less than 100 mg/dL Near Optimal/Above Optimal LDL: 110-129 mg/dL Borderline High LDL: 130-159 mg/dL High LDL: 160-189 mg/dL Very High LDL: greater than or equal to 190 mg/dL HDL 46 >40 mg/dL Desirable HDL: greater than 40 mg/dL Note: This HDL assay may give artificially low results in patients with liver disease. Name: Trenton Edwards Age/Sex: 44/M : 1980 Unit#: [id number] Attend Dr: Julianne Hunt MD Re01/26/25 Status: DEP REF Location: [facility] Disch: SPEC : [id number] JONATAN: 01/26/25 STATUS: COMP REQ : [id number] RECD: 01/26/[address]: Ghazala Florez MD COMP: 01/26/25 ENTERED: 01/26/[address]: Julianne Hunt MD ORDERED: CBC Auto Diff Test Result Flag Reference WBC 3.5 L 4.8-10.8 X10*3/uL RBC 4.46 L 4.60-5.80 X10*6/uL HGB 13.9 L 14.0-18.0 g/dl HCT 40.6 L 42.0-52.0 % MCV 91.0 80.0-98.0 fL MCH 31.2 27.0-33.0 pg MCHC 34.2 31.0-36.0 g/dl RDW 11.3 11.0-16.0 % PLT 184 160-400 X10*3/uL MPV 11.2 9.4-12.4 fL Neut Pct Auto 46.8 45-73 % ImGran Pct Auto 0.3 0.0-0.4 % Lymp Pct Auto 38.9 20-40 % [place] Pct Auto 9.1 2-11 % Eos Pct Auto 4.3 H 0-4 % Baso Pct Auto 0.6 0-2 % NRBC Pct Auto 0.0 0.0-0.2 /100WBC ANC Neut Abs # 1.7 L 2.0-8.3 x10*3/uL ImGran Abs Auto 0.01 0.00-0.03 X10*3/uL Lymph Abs Auto 1.4 1.2-4.9 X10*3/uL [place] Abs Auto 0.3 0.1-1.2 X10*3/uL Eos Abs Auto 0.2 0.0-0.4 X10*3/uL Baso Abs Auto 0.0 0.0-0.2 X10*3/uL NRBC Abs Auto 0.000 0.0-0.012 X10*3/uL Coding Level of Care Code Hung Pt Prev Care 40-64y(00418) Diagnoses Annual visit for general adult medical examination with abnormal findings Z00.01 Essential hypertension I10 Dyslipidemia E78.5 Anemia, unspecified type D64.9 Anemia type: unspecified type Acute bilateral low back pain without sciatica M54.50 Chronicity: acute Back pain laterality: bilateral Sciatica presence: without sciatica Additional Codes PHQ-9 - 26529 - PHQ-9 Billing: Yes ([id number]) Assessment & Plan Assessment & Plan (1) Annual visit for general adult medical examination with abnormal findings: Code(s): Z00.01 - Encounter for general adult medical examination with abnormal findings Plan: Recent fasting lab results reviewed with patient. Recommended dental visit every 6 months and regular eye exams, at least every 2 years. Instructed do regular testicular exam check for any mass. Up-to-date with all his vaccines. (2) Essential hypertension: Code(s): I10 - Essential (primary) hypertension Category: Medical Plan: Blood pressure stable and controlled, prescription changed to losartan-HCTZ 100-12.5 mg tab to take once a day in the morning. Reinforced importance of following low-salt diet and getting regular exercise (3) Dyslipidemia: Code(s): E78.5 - Hyperlipidemia, unspecified Category: Medical Plan: Improvement in lipids noted. Continue with adherence to healthy eating habits and regular exercise. Will repeat another fasting lipid panel in six-month (4) Anemia: Code(s): D64.9 - Anemia, unspecified Category: Medical Qualifiers: Anemia type: unspecified type Qualified Code(s): D64.9 - Anemia, unspecified Plan: Advised to stop taking too much Motrin or NSAID. Will repeat another CBC and iron profile in 6 (5) Lumbago: Code(s): M54.50 - Low back pain, unspecified Category: Medical Qualifiers: Chronicity: acute Back pain laterality: bilateral Sciatica presence: without sciatica Qualified Code(s): M54.50 - Low back pain, unspecified Plan: Prescription sent for tizanidine 4 mg per tablet to take 1 tablet at bedtime as needed for painful muscle spasm, avoid taking too much Motrin, take Tylenol arthritis instead 650 mg 1 tablet once or twice a day as needed for pain. Instructed on doing stretching exercises and doing proper lifting at work. May try applying Salonpas patch to affected areas in lower back once at night as needed Orders: Orders Complete Blood Count Auto Diff 07/27/25 D64.9 - Anemia, unspecified, E78.5 - Hyperlipidemia, unspecified, I10 - Essential (primary) hypertension, M54.50 - Low back pain, unspecified, Z00.01 - Encounter for general adult medical examination with abnormal findings IRON PROFILE 07/27/25 D64.9 - Anemia, unspecified, E78.5 - Hyperlipidemia, unspecified, I10 - Essential (primary) hypertension, M54.50 - Low back pain, unspecified, Z00.01 - Encounter for general adult medical examination with abnormal findings Lipid Panel 07/27/25 D64.9 - Anemia, unspecified, E78.5 - Hyperlipidemia, unspecified, I10 - Essential (primary) hypertension, M54.50 - Low back pain, unspecified, Z00.01 - Encounter for general adult medical examination with abnormal findings Alanine Aminotransferase 07/27/25 D64.9 - Anemia, unspecified, E78.5 - Hyperlipidemia, unspecified, I10 - Essential (primary) hypertension, M54.50 - Low back pain, unspecified, Z00.01 - Encounter for general adult medical examination with abnormal findings Aspartate Amino Transferase 07/27/25 D64.9 - Anemia, unspecified, E78.5 - Hyperlipidemia, unspecified, I10 - Essential (primary) hypertension, M54.50 - Low back pain, unspecified, Z00.01 - Encounter for general adult medical examination with abnormal findings Basic Metabolic Panel Fasting 07/27/25 D64.9 - Anemia, unspecified, E78.5 - Hyperlipidemia, unspecified, I10 - Essential (primary) hypertension, M54.50 - Low back pain, unspecified, Z00.01 - Encounter for general adult medical examination with abnormal findings Medications: New tizanidine 4 mg PO BEDTIME PRN 30 tabs 0RF muscle spasticity losartan-hydrochlorothiazide 100-12.5 mg 1 tab PO DAILY 90 tabs 1RF
[2025-01-31 14:12] VITALS: BP 122/70; PULSE 73; RESP 16; TEMP 36.7; O2SAT 97; BMI 31.0
--- OUTSIDE RECORDS SUMMARY | 2025-01-31 14:43 | XMS_ITS ---
Author Organization [facility] Address [address] [place] [address] Care Team Providers Care Medical Collections Representative Name Role Phone Gautam APARICIO, Ghazala Johnson Primary Care Provider Un available Black, Yaa Unavailable [phone] REASON FOR VISIT same day cx Problems No Known Problems Encounters Encounter Location Date Provider Diagnosis [facility] [address] [place] [address] 04/16/2024 Yaa Black Plan Of Treatment No Information Progress Notes * Mee ALLENOB:1980 (44 yo M)Acc No.[id number]:04/16/2024 Patient:?Vincenzo Alleno :1980???Age:44 Y???Sex:Male Address:[address] [place] [address], [address] * true * Date:? Generated for Goyo humphreys/Seema/eTransmitting on:?01/31/2025 02:42 PM EDT
--- OUTSIDE RECORDS SUMMARY | 2025-01-31 14:43 | XMS_ITS ---
Author Organization [facility] Address [address] [place] [address] Care Team Providers Care Assisted Living Assistant Name Role Phone Gautam APARICIO, Ghazala Johnson Primary Care Provider Un available Yaa Manley Unavailable [phone] REASON FOR VISIT [facility] Medications Medication SIG (Take, Route, Frequency, Duration) Notes Start Date End Date Status Ciclopirox Olamine 0.77 % 1 application Externally Twice a day for 30 days Active Losartan Potassium 100 MG 1 tablet Orall y Once a day Active Lamisil 250 250 MG 1 Tab Oral Daily for 90 07/18/2013 Not-Taking Jublia 10 % as directed Externally Daily for 30 days 01/29/2016 Not-Taking Ciclopirox 8 % 1 application Externally Once a day for 30 days 09/15/2023 Active hydroCHLOROthiazide 12.5 MG 1 tablet in the morning Orally Once a day Active Clobetasol Propionate 0.05 % 1 applicati on Externally Twice a day for 14 days 12/27/2023 Active Problems No Known Problems Encounters Encounter Location Date Provider Diagnosis [facility] [address] [place] [address] 12/22/2023 Yaa Manley Plan Of Treatment Medication Medication Name Sig Start Date Stop Date Notes Clobetasol Propionate 0.05 % 1 applicati on Externally Twice a day for 14 days 12/27/2023 Progress Notes * Mee ALLENOB:1980 (43 yo M)Acc No.[id number]:12/22/2023 Patient:Trenton Clark :1980???Age:43 Y???Sex:Male Address:[address] [place] [address], [address] * Refills? Start Clobetasol Propionate Cream, 0.05 %, Externally, 40, 1 application, Twice a day, 14 days, Refills=2 * true * Date:? Generated for Goyo humphreys/Seema/eTransmitting on:?01/31/2025 02:42 PM EDT
--- OUTSIDE RECORDS SUMMARY | 2025-01-31 14:43 | XMS_ITS | Patient Health Record ---
[facility] Address [address] [place] [address] Care Team Providers Care Pipe Washer Name Role Phone Gautam APARICIO, Ghazala Johnson Primary Care Provider Un available Black, Aya Unavailable [phone] Allergies Allergen (clinical drug ingredient) Drug/Non Drug [...] Problems Encounters Encounter Location Date Provider Diagnosis [facility] [address] [place] [address] 04/16/2024 Yaa Vineet Plan Of Treatment Pending Test Test Name Order Date *Liver Function Test (LFT) 06/13/2013 [id number] NAIL, 1-5 09/15/2023 [id number] NAIL, 1-5 12/22/2023 Nail Panel 09/15/2023 41063 - Shave Biopsy of Skin Lesion 11/25 Insurance Providers Payer Name Payer Address Payer Phone Subscriber Number Group Number Insured Name Patient Relationship to Insured Coverage Start Date Coverage End Date [facility] [address] [place] [address] [id number] Trenton Edwards Self - patient is the insured Medical (General) History Medical History History ICD Code seasonal allergies Anxiety covid-19 High blood pressure Surgical History Surgery Date(Month/Year) tonsillectomy
--- OUTSIDE RECORDS SUMMARY | 2025-01-31 14:43 | XMS_ITS ---
Author Organization [facility] Address [address] [place] [address] Care Team Providers Care Surgical Attendant Name Role Phone Gautam APARICIO, Ghazala Johnson Primary Care Provider Un available Yaa Manley [phone] Problems No Known Problems Encounters Encounter Location Date Provider Diagnosis [facility] [address] [place] [address] 04/16/2024 Yaa Manley Plan Of Treatment No Information Progress Notes * Vincenzo ALLENoDOB:1980 (44 yo M)Acc No.[id number]:04/16/2024 Progress Note Patient:Trenton VALLADARES Provider:?Yaa Manley DPM :1980???Age:44 Y???Sex:Male Sean e:04/16/2024 Address:[address] [place], [place] [id number] Pcp:Jayme Snell Subjective: * Chief Complaints: * ??? * Medical History:? Objective: * Vitals:? Assessment: Plan: * Treatment: * Images: * The named appointment provid er may or may not be the originator of this progress note, and it is not deemed complete until electronically signed by the appointment provider. Sign off status: Pending * Provider:?Yaa Manley DPM Date:?2023 Generated for Goyo humphreys/Seema/eTransmitting on:?01/31/2025 02:42 PM EDT
== END 2025-01-31 14:44 | disposition home or self-care (01) ==
LOC: HO.HMCC 13:48
PROVIDERS: PCP Internal Medicine; Visit Provider Internal Medicine
DX: Z00.01 Encounter for general adult medical examination with abnormal findings (principal); I10 Essential (primary) hypertension; E78.5 Hyperlipidemia, unspecified; D64.9 Anemia, unspecified; M54.50 Low back pain, unspecified

== ENCOUNTER → 2025-01-31 13:47 | Outpatient (BNVA) | payer OTHER, SELFPAY | PROVIDERS: PCP Internal Medicine; Visit Provider Internal Medicine | DX: Z00.01 Encounter for general adult medical examination with abnormal findings (principal); I10 Essential (primary) hypertension; E78.5 Hyperlipidemia, unspecified; D64.9 Anemia, unspecified; M54.50 Low back pain, unspecified | CPT/HCPCS: 96127 ==

== ENCOUNTER 2025-08-08 13:34 | Outpatient (AMB) | payer OTHER, SELFPAY ==
--- OUTSIDE RECORDS SUMMARY | 2024-04-16 10:15 | XMS_ITS ---
Author Organization [facility] Address [address] [place] [address] Care Team Providers Care Tooth Cutter Name Role Phone Gautam APARICIO, Ghazala Johnson Primary Care Provider Un available Yaa Manley Unavailable [phone] Problems No Known Problems Encounters Encounter Location Date Provider Diagnosis [facility] [address] [place] [address] 04/16/2024 Yaa Black Plan Of Treatment No Information Progress Notes * Vincenzo ALLENoDOB:1980 (45 yo M)Acc No.[id number]:04/16/2024 Progress Note Patient: Trenton MONTALVO Provider: Skip Manley DPM :1980 A ge:44 Y S ex:Male Date:04/16/2024 Address:[address] [place], [place] [id number] Pcp:Jayme Snell Subjective: * Chief Complaints: * [...] 0 04/16/2024 Generated for Stari juliann/Seema/eTransmitting on: 10/08/2024 04:54 PM EST
[2025-08-08 13:44] VITALS: BP 128/82; PULSE 70; RESP 16; TEMP 36.8; O2SAT 98; BMI 30.7
--- NOTE | 2025-08-08 13:44 | A.OFFPC_ITS ---
Vital Signs 08/08/25 13:44 Height 5 ft 9 in Weight 208 lb BMI 30.7 BP 128/82 Blood Pressure Location Rt brachial Position Sitting Respiration 16 Pulse 70 Pulse Source Pulse Oximeter Temp 98.3 F Temp Source Oral Pulse Oximetry (%) 98 Oxygen Delivery Method Room Air Intake Visit Reasons: 6 month Intake Note: Pt is here today for his 6mo. f/u [place] [employer] Required: No Allergies lisinopril Adverse Reaction (Unknown, Verified 08/08/25 13:58) cough pollen/weather realated Allergy (Unknown, Uncoded 08/08/25 13:58) unknown Terbinafine Allergy (Unknown, Uncoded 08/08/25 13:58) rash Medication List - Last Reconciled 08/08/25 by Ghazala Florez MD losartan-hydrochlorothiazide 100-12.5 mg 1 tab PO DAILY omeprazole 20 mg PO DAILY tizanidine 4 mg PO BEDTIME PRN Tobacco use date assessed: 08/08/25 Dental Screening Dental Screen Date: 08/08/25 Did you have a dental visit in the last 12 months?: Yes Did you have a dental problem in the last 6 months where you did not have access to dental care?: No Was dental information given to patient?: Patient has dentist [facility] Medical History (Updated 08/08/25 @ 14:09 by Ghazala Florez MD) Heartburn symptom Colon cancer screening Family history of colon cancer Lumbago Anemia Mild intermittent asthma Family history of rheumatoid arthritis Polyarthralgia Anxiety Low back pain radiating down leg Dyslipidemia Essential hypertension Surgical History Hx of tonsillectomy Family History Father High blood pressure High cholesterol Substance use disorder Mother High blood pressure High cholesterol Arthritis Sister High blood pressure High cholesterol Brother High blood pressure Social History Housing: House Alcohol intake: current Alcohol intake frequency: a few times a month Alcohol type: beer Patient Tobacco Use Status: Never used Tobacco e-Cigarette/Vaping Use: Never Used Current occupational status: employed Cognitive needs: No Hearing needs: No Vision needs: No Questionnaire PHQ-9 Over the last 2 weeks, how often have you been bothered by any of the following problems? 1. Little interest or pleasure in doing things: not at all 2. Feeling down, depressed, or hopeless: not at all 3. Trouble falling or staying asleep, or sleeping too much: not at all 4. Feeling tired or having little energy: not at all 5. Poor appetite or overeating: not at all 6. Feeling bad about yourself - or that you are a failure or have let yourself or your family down: not at all 7. Trouble concentrating on things, such as reading the newspaper or watching television: not at all 8. Moving or speaking so slowly that other people could have noticed. Or the opposite - being so fidgety or restless that you have been moving around a lot more than usual: not at all 9. Thoughts that you would be better off or of hurting yourself in some way: not at all Total score: 0 Source: Developed by Drs. Kg Greenwood, Anne Wolfe, Juan Latif and colleagues, with an educational irene from [employer]. Thrive Questionnaire Date Thrive assessed: 01/31/25 I am a: Patient What is your living situation today?: I have a steady place to live Within the past 12 months, did the food you bought not last and you didn't have the money to get more?: Never true Within the past 12 months, did you worry whether your food would run out before you got money to buy more?: Never true Do you have trouble paying for medicines?: No Do you have trouble getting transportation to medical appointments?: No Do you have trouble paying your heating and electricity bill?: No Do you have trouble taking care of your child, family member or friend?: No Do you have trouble with day-to-day activities such as bathing, preparing meals, shopping, managing finances, etc.?: No Are you currently unemployed and looking for a job?: No Are you interested in more education?: No THRIVE Score: 0 AUDIT C Alcohol Use Questionnaire (AUDIT-C) 1. How often do you have a drink containing alcohol?: Never Total Score: 0 KAREL-7 AMB Questionnaire KAREL-7 Date KAREL - 7 assessed: 01/31/25 Feeling nervous, anxious, or on edge: 0 = Not at all Not being able to stop or control worryin = Not at all Worrying too much about different things: 0 = Not at all Trouble relaxin = Not at all Being so restless that it is hard to sit still: 0 = Not at all Becoming easily annoyed or irritable: 0 = Not at all Feeling afraid as if something awful might happen: 0 = Not at all Total KAREL-7 score (0-4 normal; 5-9 mild; 10-14 moderate; 15-21 severe): 0 Source: Developed by Drs. Kg Greenwood, Anne Wolfe, Juan Latif and colleagues, with an educational irene from [employer]. Physical exam (Primary Care) Vital Signs: Last Vital Signs Temp 98.3 F 08/08/25 13:44 Pulse 70 08/08/25 13:44 Resp 16 08/08/25 13:44 BP 128/82 08/08/25 13:44 Pulse Ox 98 08/08/25 13:44 Oxygen Delivery Method Room Air 08/08/25 13:44 BMI result Body Mass Index 30.7 Tobacco/Smoking Status: Tobacco use Status Tobacco use date assessed 08/08/25 08/08/25 13:48 Patient Tobacco Use Status Never used Tobacco 08/08/25 13:48 e-Cigarette/Vaping Use Never Used 08/08/25 13:48 PHQ-9: PHQ-9 Score PHQ-9: Total score 0 08/08/25 13:48 Thrive Assessment: Date of Thrive Assessment Date Thrive assessed 01/31/25 08/08/25 13:48 Office Procedures Flu Questionnaire Does the patient have a severe egg allergy?: No Does the patient have severe life threatening allergies?: No Does the patient have a fever or illness today?: No Has the patient ever had Guillain-Rogers Syndrome?: No Has the patient ever had any past reaction to a flu shot?: No Immunizations Fluarix [id number] (PF) 45 mcg (15 mcg x 3)/0.5 mL IM syringe Performing Provider: Ghazala Florez MD Performing Location[place] [facility] Administered by: Altagracia Catherine CMA on 08/08/25 13:56 Dose Route Admin Location Dispensed Lot Number Expiration Date NDC Public [employer] 0.5 mL IM Right Deltoid 0.5 mL [id number] 03/25/26 23503-338-[facility] Given Date VIS Provided VIS Publication Date 08/08/25 Single Vaccine 24 Eligibility Eligibility Date Funding Source Not [facility] Eligible 08/08/25 Private Coding Level of Care Code Est Pt Level 4 (04728) Complex EM visit Add On G2211 Diagnoses Family history of colon cancer Z80.0 Colon cancer screening Z12.11 Essential hypertension I10 Dyslipidemia E78.5 Heartburn symptom R12 Assessment & Plan Assessment & Plan (1) Family history of colon cancer: Code(s): Z80.0 - Family history of malignant neoplasm of digestive organs Category: Medical (2) Colon cancer screening: Code(s): Z12.11 - Encounter for screening for malignant neoplasm of colon Category: Medical (3) Essential hypertension: Code(s): I10 - Essential (primary) hypertension Category: Medical (4) Dyslipidemia: Code(s): E78.5 - Hyperlipidemia, unspecified Category: Medical (5) Heartburn symptom: Code(s): R12 - Heartburn Category: Medical Orders: Orders Influenza [id number] Immunization Today Z23 - Encounter for immunization Referrals Gastroenterology Referral Z12.11 - Encounter for screening for malignant neoplasm of colon, Z80.0 - Family history of malignant neoplasm of digestive organs
--- OUTSIDE RECORDS SUMMARY | 2025-08-08 16:55 | XMS_ITS | Patient Health Record ---
[facility] Address [address] [place] [address] Care Team Providers Care Biodiesel Production Associate Name Role Phone Gautam APARICIO, Ghazala Johnson Primary Care Provider Un available Black, Yaa Unavailable [phone] Allergies Allergen (clinical drug ingredient) Drug/Non Drug Allergy documented on EMR Reaction Allergy Type Onset Date Status Lamisil rash Drug Allergy Active Reason For Referral No Information Medications Medication SIG (Take, Route, Frequency, Duration) Notes Start Date End Date Status hydroCHLOROthiazide 12.5 MG 1 tablet in the morning Orally Once a day Active Ciclopirox Olamine 0.77 % 1 application Externally Twice a day; Duration: 30 days Active Losartan Potassium 100 MG 1 tablet Orall y Once a day Active Clobetasol Propionate 0.05 % 1 applicati on Externally Twice a day; Duration: 14 days 12/27/2023 Active Lamisil 250 250 MG 1 Tab Oral Daily; Duration: 90 07/18/2013 Not-Taking Jublia 10 % as directed Externally Daily; Duration: 30 days 01/29/2016 Not-Taking Ciclopirox 8 % 1 application Externally Once a day; Duration: 30 days 09/15/2023 Active Social History Tobacco [...] tobacco user? No Problems No Known Problems Plan Of Treatment Pending Test Test Name Order Date *Liver Function Test (LFT) 06/13/2013 [id number] NAIL, 1-5 09/15/2023 [id number] NAIL, 1-12/22/2023 Nail Panel 09/15/2023 [id number] - Shave Biopsy of Skin Lesion 11/25 Insurance Providers Payer Name Payer Address Payer Phone Subscriber Number Group Number Insured Name Patient Relationship to Insured Coverage Start Date Coverage End Date [facility] [address] [place] [address] [id number] Self - patient is the insured Medical (General) History Medical History History ICD Code seasonal allergies Anxiety covid-19 High blood pressure Surgical History Surgery Date(Month/Year) tonsillectomy
== END 2025-08-08 15:22 | disposition home or self-care (01) ==
LOC: HO.HMCC 13:36
PROVIDERS: PCP Internal Medicine; Visit Provider Internal Medicine
DX: Z23 Encounter for immunization (principal)

== ENCOUNTER → 2025-08-08 13:34 | Outpatient (BNVA) | payer OTHER, SELFPAY | PROVIDERS: PCP Internal Medicine; Visit Provider Internal Medicine | DX: I10 Essential (primary) hypertension (principal); F41.9 Anxiety disorder, unspecified; E78.5 Hyperlipidemia, unspecified; J45.20 Mild intermittent asthma, uncomplicated; R12 Heartburn; Z23 Encounter for immunization | CPT/HCPCS: 90471; 90656; 96127 ==

== ENCOUNTER 2025-08-09 06:01 | Outpatient (REF) | payer OTHER, SELFPAY ==
--- OUTSIDE RECORDS SUMMARY | 2024-04-16 10:15 | XMS_ITS ---
Author Organization [facility] Address [address] [place] [address] Care Team Providers Care Hemodialysis Patient Care Specialist Name Role Phone Gautam APARICIO, Ghazala Johnson Primary Care Provider Un available Yaa Manley Unavailable [phone] Problems No Known Problems Encounters Encounter Location Date Provider Diagnosis [facility] [address] [place] [address] 04/16/2024 Yaa Black Plan Of Treatment No Information Progress Notes * Vincenzo ALLENoDOB:1980 (45 yo M)Acc No.[id number]:04/16/2024 Progress Note Patient: Trenton MONTALVO Provider: Skip Manley DPM :1980 A ge:44 Y S ex:Male Date:04/16/2024 Address:[address] [place], [place] [id number] Pcp:Jayme Snell Subjective: * Chief Complaints: * * Medical History: Objective: * Vitals: Assessment: Plan: * Treatment: * Images: * The named appointment provid er may or may not be the originator of this progress note, and it is not deemed complete until electronically signed by the appointment provider. Sign off status: Pending * Provider: Skip Manley DPM Date: 0 04/16/2024 Generated for Stari juliann/Seema/eTransmitting on: 10/09/2024 06:02 AM EST
--- OUTSIDE RECORDS SUMMARY | 2025-08-09 06:03 | XMS_ITS | Patient Health Record ---
Author Organization [facility] Address [address] [place] [address] Care Team Providers Care Train Gateman Name Role Phone Gautam APARICIO, Ghazala Johnson Primary Care Provider Un available Black, Yaa Unavailable [phone] Allergies Allergen (clinical drug ingredient) Drug/Non Drug [...] Order Date *Liver Function Test (LFT) 06/13/2013 [id number] NAIL, 1-5 09/15/2023 [id number] NAIL, 1-12/22/2023 Nail Panel 09/15/2023 [id number] - Shave Biopsy of Skin Lesion 11/25 Insurance Providers Payer Name Payer Address Payer Phone Subscriber Number Group Number Insured Name Patient Relationship to Insured Coverage Start Date Coverage End Date [facility] [address] [place] [address] [id number] Self - patient is the insured Medical (General) History Medical History History ICD Code seasonal allergies Anxiety covid-19 High blood pressure Surgical History Surgery Date(Month/Year) tonsillectomy
[2025-08-09 10:16] LABS: MANUAL DIFF FLAG NO
[2025-08-09 10:35] LABS: Hematocrit 41.5 % (42.0-52.0); Hemoglobin 14.4 g/dl (14.0-18.0); Imm Gran Abs Auto 0.01 X10*3/uL (0.00-0.03); Imm Gran Pct Auto 0.2 % (0.0-0.4); Lymphocytes Absolute Auto 1.1 X10*3/uL (1.2-4.9); Mean Corpuscular HGB Conc 34.7 g/dl (31.0-36.0); Mean Corpuscular Hemoglobin 31.8 pg (27.0-33.0); Mean Corpuscular Volume 91.6 fL (80.0-98.0); NRBC Abs Auto 0.000 X10*3/uL (0.0-0.012); NRBC Pct Auto 0.0 /100WBC (0.0-0.2); Platelet Count 208 X10*3/uL (160-400); Red Blood Count 4.53 X10*6/uL (4.60-5.80); White Blood Count 4.1 X10*3/uL (4.8-10.8)
[2025-08-09 11:01] LABS: Alanine Aminotransferase 41 U/L (0-40); Anion Gap 11 (12-20); Aspartate Amino Transferase 31 U/L (5-37); Blood Urea Nitrogen 16 mg/dL (9-16); Calcium 9.2 mg/dL (8.4-10.2); Carbon Dioxide 29 mmol/L (22-29); Chloride 108 mmol/L (96-108); Cholesterol 217 mg/dL (<200); Estimated Glomerular Filt Rate > 60; HDL Cholesterol 49 mg/dL (>40); Iron 99 mcg/dL (45-160); Percent Iron Saturation 36 % (15-50); Potassium 3.9 mmol/L (3.3-5.1); Sodium 144 mmol/L (135-145); Total Iron Binding Capacity 272 mcg/dL (228-428); Triglycerides 80 mg/dL (<150); Unsaturated Iron Binding 173 ug/dL
== END 2025-08-09 06:02 | disposition home or self-care (01) ==
LOC: HO.HMGCLDS 06:01
PROVIDERS: PCP Internal Medicine; Visit Provider Internal Medicine
DX: Z00.01 Encounter for general adult medical examination with abnormal findings (principal); D64.9 Anemia, unspecified; E78.5 Hyperlipidemia, unspecified; M54.50 Low back pain, unspecified; I10 Essential (primary) hypertension
CPT/HCPCS: 36415; 80048; 80061; 83540; 84450; 84460; 85025